=== PATIENT | female | born 1960 | race Caucasian/White ===

== ENCOUNTER 2023-02-21 09:00 | Outpatient (RCR) | payer BC, SELFPAY | END 2023-04-08 14:02 | disposition home or self-care (01) | PROVIDERS: PCP Family Medicine; Visit Provider Family Medicine | DX: M76.31 Iliotibial band syndrome, right leg (principal); M67.972 Unspecified disorder of synovium and tendon, left ankle and foot; M25.552 Pain in left hip; M25.551 Pain in right hip; M79.672 Pain in left foot; R29.898 Other symptoms and signs involving the musculoskeletal system; Z51.89 Encounter for other specified aftercare | CPT/HCPCS: 97110; 97140; 97161 ==